=== PATIENT | female | born 1945 | race Hispanic/Latino ===

== ENCOUNTER 2017-09-06 19:16 | Inpatient (IN) | payer MEDICARE ==
[~2017-09-06] VITALS: Ht 162.6 cm; Wt 77.3 kg
[2017-09-06 19:51] LABS: EOSINOPHILS % (AUTO) 4.2 % (0.0-8.0); MEAN CORPUSCULAR HEMOGLOBIN 32.2 pg (27.0-33.0); MEAN CORPUSCULAR HGB CONC 35.2 g/dL (32.0-36.0); MEAN CORPUSCULAR VOLUME 91.7 fL (79-99); MONOCYTES % (AUTO) 6.4 % (3.0-13.0); NEUTROPHILS % (AUTO) 48.4 % (40.0-77.0); PLATELET COUNT (AUTO) 273 K/uL (130-400); RED BLOOD CELL COUNT(AUTO) 4.36 MIL/uL (4.00-5.50); RED CELL DISTRIBUTION WIDTH 12.8 % (11.0-15.5); WHITE BLOOD COUNT (AUTO) 13.6 K/uL (4.8-10.8)
[2017-09-06 20:17] LABS: CREATININE 0.9 mg/dL (0.5-1.5); INR 0.96 (0.85-1.15); POTASSIUM 4.3 mmol/L (3.5-5.1); PROTHROMBIN TIME 10.1 SEC (9.6-11.6)
[2017-09-06 20:30] LABS: ALBUMIN 4.1 g/dL (3.5-5.0); BILIRUBIN,TOTAL 0.6 mg/dL (0.2-1.0); CREATINE KINASE MB 0.7 ng/mL (0.5-3.6); TOTAL PROTEIN, SERUM 7.9 g/dL (6.0-8.3)
[2017-09-06] MEDS ORDERED: IOPAMIDOL-370 75 ML VIAL IV ONE (22:33)
[2017-09-07] MEDS ORDERED: HYDRALAZINE HCL 20 MG/ML VIAL ONE (00:15)
[2017-09-07] MEDS ORDERED: ACETAMINOPHEN 325 MG TAB ONE ×2 (01:00→06:00)
[2017-09-07 04:27] LABS: BASOPHILS % (AUTO) 1.1 % (0.0-5.0); EOSINOPHILS % (AUTO) 3.1 % (0.0-8.0); HEMATOCRIT 38.9 % (36-48); LYMPHOCYTES % (AUTO) 29.4 % (21.0-51.0); MEAN CORPUSCULAR HEMOGLOBIN 32.2 pg (27.0-33.0); MEAN CORPUSCULAR HGB CONC 35.1 g/dL (32.0-36.0); MEAN CORPUSCULAR VOLUME 91.7 fL (79-99); MONOCYTES % (AUTO) 7.5 % (3.0-13.0); NEUTROPHILS % (AUTO) 58.9 % (40.0-77.0); PLATELET COUNT (AUTO) 265 K/uL (130-400); RED BLOOD CELL COUNT(AUTO) 4.24 MIL/uL (4.00-5.50); RED CELL DISTRIBUTION WIDTH 12.9 % (11.0-15.5); WHITE BLOOD COUNT (AUTO) 13.2 K/uL (4.8-10.8)
[2017-09-07 04:31] LABS: HEMOGLOBIN A1C 9.9 % (4.0-6.0)
[2017-09-07 04:38] LABS: CREATININE 0.9 mg/dL (0.5-1.5); POTASSIUM 3.9 mmol/L (3.5-5.1)
[2017-09-07 04:55] LABS: THYROID STIMULATING HORMONE 2.27 uIU/mL (0.36-3.74)
[2017-09-07] MEDS ORDERED: ACETAMINOPHEN 325 MG TAB PO PRN (06:00)
[2017-09-07] MEDS ORDERED: ATOR40TA71 PO (14:12)
[2017-09-07] MEDS ORDERED: METF10004 PO (14:12)
[2017-09-07] MEDS ORDERED: CANA300T PO (14:12)
[2017-09-07] MEDS ORDERED: LOSA50TA37 PO (14:12)
[2017-09-07] MEDS ORDERED: CHOL500050 PO (14:12)
[2017-09-07] MEDS ORDERED: CHLO25TA3 PO (14:12)
[2017-09-07] MEDS ORDERED: PANT40TA25 PO (14:12)
[2017-09-07] MEDS ORDERED: CLOP75TA32 PO (14:12)
[2017-09-07] MEDS ORDERED: CLOPIDOGREL BISULFATE 75 MG TAB ONE (16:18)
[2017-09-07] MEDS: ATORVASTATIN CALCIUM 40 MG TABLET PO SCH (17:00)
[2017-09-07] MEDS ORDERED: GABAPENTIN 100 MG CAPSULE PO SCH (17:45)
[2017-09-07] MEDS: METFORMIN HCL 500 MG TABLET PO SCH (19:16)
[2017-09-08 06:11] LABS: BASOPHILS % (AUTO) 0.6 % (0.0-5.0); EOSINOPHILS % (AUTO) 5.5 % (0.0-8.0); HEMATOCRIT 39.2 % (36-48); MEAN CORPUSCULAR HEMOGLOBIN 31.2 pg (27.0-33.0); MEAN CORPUSCULAR VOLUME 91.7 fL (79-99); MONOCYTES % (AUTO) 8.6 % (3.0-13.0); NEUTROPHILS % (AUTO) 47.3 % (40.0-77.0); PLATELET COUNT (AUTO) 275 K/uL (130-400); RED BLOOD CELL COUNT(AUTO) 4.28 MIL/uL (4.00-5.50); RED CELL DISTRIBUTION WIDTH 12.5 % (11.0-15.5); WHITE BLOOD COUNT (AUTO) 12.3 K/uL (4.8-10.8)
[2017-09-08 06:22] LABS: HEMOGLOBIN A1C 9.7 % (4.0-6.0)
[2017-09-08 06:30] LABS: CREATININE 0.9 mg/dL (0.5-1.5); MAGNESIUM 2.3 mg/dL (1.80-2.40); POTASSIUM 4.1 mmol/L (3.5-5.1)
[2017-09-08 06:37] LABS: CHOLESTEROL 104 mg/dL (<200); HDL CHOLESTEROL 55 mg/dL (35-85); LDL DIRECT 43 mg/dL (0-99); TRIGLYCERIDES 69 mg/dL (30-200)
[2017-09-08 07:35] LABS: AMPHET/METH SCREEN,URINE NEGATIVE (NEGATIVE); BARBITURATE SCREEN, URINE NEGATIVE (NEGATIVE); BENZODIAZEPINES SCREEN,URINE NEGATIVE (NEGATIVE); CANNABINOID SCREEN,URINE NEGATIVE (NEGATIVE); COCAINE SCREEN,URINE NEGATIVE (NEGATIVE); OPIATE SCREEN,URINE NEGATIVE (NEGATIVE); PHENCYCLIDINE SCREEN,URINE NEGATIVE (NEGATIVE)
[2017-09-08 07:39] LABS: APPEARANCE,URINE Clear (CLEAR); BILIRUBIN,URINE Negative (NEGATIVE); COLOR,URINE Yellow (YELLOW); GLUCOSE, URINE (UA) >=1000 mg/dL (NEGATIVE); KETONES,URINE Negative (NEGATIVE); LEUKOCYTE ESTERASE ,URINE Negative (NEGATIVE); NITRATE,URINE Negative (NEGATIVE); OCCULT BLOOD,URINE Negative (NEGATIVE); PH,URINE 5.5 (5.0-8.0); PROTEIN,URINE Negative (NEGATIVE)
[2017-09-08 07:47] LABS: BACTERIA,URINE Rare /HPF (None Seen); RBC,URINE 0-1 /HPF (0-1); SQUAMOUS EPITHELIAL CELL,UR Few /HPF (0-2)
[2017-09-08] MEDS ORDERED: CANAGLIFLOZIN 300 MG PO SCH (08:00)
[2017-09-08] MEDS ORDERED: **HM**Cholecalciferol (Vitamin D3) (Vitamin D) 50,000 UNIT PO SCH (09:00)
[2017-09-08] MEDS ORDERED: CHLORTHALIDONE 25 MG PO SCH (09:00)
[2017-09-08] MEDS: CLOPIDOGREL BISULFATE 75 MG TAB PO SCH (09:00)
[2017-09-08] MEDS: PANTOPRAZOLE SODIUM 40 MG TABLET.DR PO SCH (09:00)
[2017-09-08] MEDS: LOSARTAN 50 MG TABLET PO SCH (09:00)
[2017-09-08] MEDS ORDERED: PANTOPRAZOLE SODIUM 40 MG TABLET.DR PO ONE (09:30)
[2017-09-08] MEDS: GABAPENTIN 100 MG CAPSULE PO SCH ×2 (11:00→19:00)
[2017-09-08] MEDS ORDERED: LOSA100T29 PO (12:26)
[2017-09-08] MEDS ORDERED: ATOR20TA65 PO (12:26)
[2017-09-08] MEDS ORDERED: PREG150C PO (12:26)
[2017-09-08] MEDS ORDERED: DAPA10TA PO (12:26)
[2017-09-08] MEDS ORDERED: TRAM50TA4 PO (12:26)
[2017-09-08] MEDS ORDERED: MEMA5TAB15 PO (12:26)
[2017-09-08] MEDS ORDERED: TRAZ-144 PO (12:26)
[2017-09-08] MEDS ORDERED: CHOL500050 PO (12:36)
[2017-09-08] MEDS ORDERED: INSULIN HUMULIN R 100 UNIT/ML 3ML ONE ×2 (13:14→18:29)
[2017-09-08] MEDS: ATORVASTATIN CALCIUM 40 MG TABLET PO SCH (17:00)
[2017-09-08] MEDS: METFORMIN HCL 500 MG TABLET PO SCH (17:00)
[2017-09-08] MEDS ORDERED: ACETAMINOPHEN 325 MG TAB ONE (20:35)
[2017-09-08] MEDS ORDERED: CLOPIDOGREL BISULFATE 75 MG TAB ONE (20:56)
[2017-09-08] MEDS ORDERED: INSULIN GLARGINE 100 UNITS/ML 10 ML VIAL SQ SCH (21:00)
[2017-09-09 00:29] VITALS: BP 117/50
[2017-09-09] MEDS: GABAPENTIN 100 MG CAPSULE PO SCH ×2 (02:24→09:57)
[2017-09-09 03:41] VITALS: BP 131/69
[2017-09-09 08:00] VITALS: BP 122/61
[2017-09-09] MEDS: PANTOPRAZOLE SODIUM 40 MG TABLET.DR PO SCH (09:55)
[2017-09-09] MEDS: LOSARTAN 50 MG TABLET PO SCH (09:55)
[2017-09-09] MEDS: CLOPIDOGREL BISULFATE 75 MG TAB PO SCH (09:55)
[2017-09-09] MEDS: METFORMIN HCL 500 MG TABLET PO SCH (09:57)
[2017-09-09] MEDS ORDERED: GABA100C PO (12:25)
== END 2017-09-09 13:50 | disposition home or self-care (01) | DRG 74 ==
LOC: EDH 19:16 → EDHIP 23:01 → OBSVTOIN 23:01 → 2AH 09-09 00:18
PROVIDERS: ADMIT Family Medicine; ATTEND Family Medicine
DX: E11.42 Type 2 diabetes mellitus with diabetic polyneuropathy (principal); E11.65 Type 2 diabetes mellitus with hyperglycemia; I69.354 Hemiplegia and hemiparesis following cerebral infarction affecting left non-dominant side; N39.0 Urinary tract infection, site not specified; M79.2 Neuralgia and neuritis, unspecified; E78.5 Hyperlipidemia, unspecified; I10 Essential (primary) hypertension; Z79.02 Long term (current) use of antithrombotics/antiplatelets; Z83.3 Family history of diabetes mellitus; Z90.49 Acquired absence of other specified parts of digestive tract; Z88.6 Allergy status to analgesic agent; Z79.4 Long term (current) use of insulin
CPT/HCPCS: 36415; 70450; 70496; 70498; 70551; 71045; 80048; 80053; 80061; 80305; 81001; 82550; 82553; 82607; 82746; 82948; 83036; 83735; 83874; 84436; 84443; 84479; 84481; 84484; 85025; 85610; 85651; 85730; 86038; 93005; 93306; 99291; J0360; J1815; Q9967

== ENCOUNTER → 2019-01-22 | Outpatient (CLI) | payer MEDICARE ==
[~2019-01-22] MED LIST: ATOR20TA65 PO; CANA300T PO; CHLO25TA3 PO; CHOL500050 PO; CLOP75TA32 PO; GABA100C PO; LOSA100T58 PO; MEMA5TAB15 PO; METF-446 PO; TRAZ-185 PO
== END | disposition home or self-care (01) ==
LOC: OIH 10:36
PROVIDERS: ATTEND Family Medicine
DX: I10 Essential (primary) hypertension (principal)
CPT/HCPCS: 71046

== ENCOUNTER → 2019-04-09 | Outpatient (CLI) | payer OTHER, MEDICARE | END | disposition home or self-care (01) | LOC: OIH 14:20 | PROVIDERS: ATTEND Family Medicine | DX: M79.645 Pain in left finger(s) (principal); M79.89 Other specified soft tissue disorders | CPT/HCPCS: 73140 ==